=== PATIENT | female | born 1970 | race Caucasian/White ===

== ENCOUNTER 2019-04-17 11:13 | Emergency (ER) | payer BC, OTHER ==
[~2019-04-17] VITALS: Ht 165.1 cm; Wt 79.0 kg
[2019-04-17 11:24] VITALS: BP 148/98
[2019-04-17] MEDS ORDERED: rabies vaccine (PCEC)/PF 2.5 unit kit IM ONE (12:40)
[2019-04-17] MEDS ORDERED: rabies immune globulin/PF 150 unit/ml inj IM ONE (12:40)
[2019-04-17] MEDS ORDERED: AMOX-580 PO (13:07)
== END 2019-04-17 13:58 | disposition home or self-care (01) ==
LOC: ER 11:13
DX: S81.832A Puncture wound without foreign body, left lower leg, initial encounter (principal); W54.0XXA Bitten by dog, initial encounter; Y93.89 Activity, other specified; Y92.89 Other specified places as the place of occurrence of the external cause; Y99.9 Unspecified external cause status
CPT/HCPCS: 90375; 90471; 90675; 96372; 99283

== ENCOUNTER 2019-04-20 07:54 | Emergency (ER) | payer BC, OTHER ==
[~2019-04-20] VITALS: Ht 165.1 cm; Wt 81.0 kg
[~2019-04-20 07:54] MED LIST: AMOX-580 PO
[2019-04-20 07:58] VITALS: BP 148/85
[2019-04-20] MEDS ORDERED: rabies vaccine (PCEC)/PF 2.5 unit kit IMVAC ONE (08:25)
== END 2019-04-20 08:59 | disposition home or self-care (01) ==
LOC: ER 07:54
DX: Z23 Encounter for immunization (principal); L53.8 Other specified erythematous conditions
CPT/HCPCS: 90471; 90675; 99283

== ENCOUNTER 2019-04-24 06:29 | Emergency (ER) | payer BC ==
[~2019-04-24] VITALS: Ht 165.1 cm; Wt 80.0 kg
[2019-04-24] MEDS ORDERED: rabies vaccine (PCEC)/PF 2.5 unit kit IMVAC ONE (06:45)
[2019-04-24 07:05] VITALS: BP 131/80
== END 2019-04-24 07:07 | disposition home or self-care (01) ==
LOC: ER 06:30
DX: S81.832D Puncture wound without foreign body, left lower leg, subsequent encounter (principal); Z23 Encounter for immunization; W54.0XXD Bitten by dog, subsequent encounter
CPT/HCPCS: 90471; 90675; 99283